=== PATIENT | female | born 1965 | race Caucasian/White ===

== ENCOUNTER 2016-12-26 12:35 | Inpatient (IN) | payer OTHER ==
[~2016-12-26] VITALS: Ht 167.6 cm; Wt 54.6 kg
--- NOTE | ~2016-12-26 | EKG ---
PATIENT: CHA REAVES UNIT #: [id number] Ventricular Rate: 106 BPM Atrial Rate: 106 BPM P-R Interval: 144 ms QRS Duration: 84 ms Q-T Interval: 360 ms QTC Calculation(Bezet): 478 ms P [place]: 60 degrees Calculated R [place]: 35 degrees Calculated T [place]: 44 degrees Diagnosis Line: Sinus tachycardia Diagnosis Line: Otherwise normal ECG Diagnosis Line: Diagnosis Line: Confirmed by ADRIAN PERRY MD ([id number]) on 12/27/2016 Diagnosis Line: 5:56:16 PM INTERPRETING MD: ORLANDO GONZALEZ
--- NOTE | ~2016-12-26 | HP ---
Unit #: [id number] #: [id number] Patient: CHA REAVES [id number] [facility] [address]. [place], [place] [address] [id number] I MR#: [id number] NAME: CHA REAVES ROOM: 90031 Age: 51 Sex: F Admission Date: 12/26/2016 : 1965 Attending Physician: Lizy Sierra M.D. Primary Care Physician: No Primary Care Physician HISTORY AND PHYSICAL CHIEF COMPLAINT Nausea and vomiting. HISTORY OF PRESENT ILLNESS The patient is a 51-year-old female with a past medical history of hypertension, GERD, alcohol abuse, who presented to the emergency department from [facility] for evaluation of the above. The patient states that she has been vomiting since yesterday. She report approximately four bouts of nonbloody emesis within the past 24 hours. She denies any diarrhea. No abdominal pain. No fever. No cough or cold symptoms. She states that she typically drinks a bottle and a half of wine daily. her last drink was yesterday. She had gone to [facility] for rehab. In the emergency department, initial pulse and blood pressure was 106 and 136/80 respectively. Laboratory notable for sodium of 121, lipase is 84. She was given 2 L of normal saline, as well as 4 mg of Zofran in the emergency department. She is being admitting to [facility] for evaluation and further treatment. PAST MEDICAL HISTORY 1. The patient reports that her only hospitalizations have been for childbirth. 2. Hypertension. 3. GERD. PAST SURGICAL HISTORY None. SOCIAL HISTORY The patient lives with her sons. She is a daily drinker. She drinks about a bottle and a half of wine daily, the last drink was yesterday. She was in rehab in October but has recently relapsed. She denies illicit drug use. FAMILY HISTORY Notable for her mother having hypertension. Her dad has atrial fibrillation. ALLERGIES No known allergies. HOME MEDICATIONS Unit #: [id number] #: [id number] Patient: CHA REAVES Progesterone 100 mg at bedtime; Nexium 20 mg daily; Avapro 150 mg at bedtime. REVIEW OF SYSTEMS A complete review of systems is negative except as indicated in the HPI. The patient denies suicidal or homicidal ideations. PHYSICAL EXAMINATION VITAL SIGNS: Temperature is 98.3, pulse 106, respiration 16, blood pressure 136/80, oxygen saturation is 99% on room air. GENERAL: The patient is a female who is awake and alert in no acute distress. HEENT: Head is atraumatic. Mucous membranes are moist. NECK: Supple. Trachea is midline. CARDIOVASCULAR: Regular rate and rhythm. LUNGS: Clear to auscultation bilaterally. There is no increased work of breathing. ABDOMEN: Soft, nontender with bowel sounds present in all four quadrants. EXTREMITIES: Nontender with no pedal edema. NEUROLOGIC: The patient is awake and alert. She follows commands. PSYCH: Mood and affect are normal. The patient is cooperative. SKIN: Warm and dry. DIAGNOSTIC STUDIES LABORATORY STUDIES: Shows comprehensive metabolic panel notable for a sodium of 121, potassium of 3.4, chloride 81, CO2 is 16, anion gap is 24, AST and ALT are 63 and 79 respectively, lipase is 84, complete blood count notable for white blood cell count of 3.4, platelets are 72. ASSESSMENT The patient is a 51-year-old female with: 1. Hyponatremia. The patient's sodium is 121, with no baseline for comparison. Albumin is normal. The patient has had vomiting. I suspect that both alcohol, as well as volume depletion may be contributing. The patient received 2 L of normal saline in the emergency department. 2. Acute pancreatitis. The patient's lipase is 84. She denies abdominal pain. I suspect that this is related to alcohol abuse. 3. Anion gap metabolic acidosis with an anion gap of 24, likely related to alcohol. 4. Hypokalemia with potassium of 3.4. 5. Transaminitis due to alcohol. 6. GERD. 7. Alcohol abuse with last drink yesterday. 8. Hypertension. PLAN 1. Admit to an intermediate level. 2. Regular diet. 3. Bicarb drip at 75 mL an hour. 4. Frequent BMP (q.6 hours). 5. Urine sodium and osmolality. 6. Serum osmolality. 7. Chest x-ray for further evaluation of hyponatremia. 8. Check urinalysis. 9. Strict I's and O's. 10. EKG and cardiac enzymes if not done. 11. Consult Dr. Segura regarding hyponatremia. Unit #: [id number] #: [id number] Patient: CHA REAVES 12. Check magnesium, alcohol salicylate levels. 13. Potassium magnesium protocol. 14. Consult Dr. Romo regarding alcohol abuse. 15. Thiamine, multivitamin, folic acid. 16. CIWA scoring. 17. PT and OT to evaluate and treat. 18. Repeat labs in the morning including magnesium and lipase. 19. SCDs for DVT prophylaxis. 20. Additional workup and consultants based on above. Dictated by Lizy Sierra M.D. IGNACIO/beverley TD: 12/26/2016 17:39 JOB #: [id number] HISTORY AND PHYSICAL Page 1 of 1 X Lizy Sierra MD X HISTORY AND PHYSICAL
--- NOTE | ~2016-12-26 | CO ---
Unit #: [id number] #: [id number] Patient: CHA REAVES [id number] [facility] [address] [facility]. [place], [place] [address] [id number] I MR#: [id number] NAME: CHA REAVES ROOM: 310 Age: 51 Sex: F Admission Date: 12/26/2016 : 1965 Attending Physician: Loulou Hawkins M.D. Primary Care Physician: Primary Care Physician No Consultation Date: 12/27/2016 CONSULTATION REPORT REASON FOR CONSULTATION Depression, alcohol abuse, and withdrawal. HISTORY OF PRESENT ILLNESS Ms. Muro is a 51-year-old white female, seen in room 310, bed 1 on 12/27/2016 at [facility]. The patient dressed casually, lying comfortably in bed. The patient's mom was at the bedside. The patient reported that she started drinking gradually increasing amount after her ran away with the nurse and marrying this winter. The patient reported she got in [facility] of last year. The patient reported that she has two children at home and one is with her ex. The patient reported feeling sad, depressed, and started drinking. The patient reports never received any treatment. The patient was in a treatment with a therapist as well as with the substance abuse program, but never tried on any antidepressant. The patient denied any suicide attempt, but feeling sad, depressed, tearful, anxious, nervous. Denied any current suicidal or homicidal ideation. The patient's vital signs; temperature 98.1, pulse 80, respiratory rate 16, blood pressure 126/88, and oxygen saturation 100%. The patient was transferred from [facility] drug rehab program due to nausea, vomiting, and poor intake. The patient's sodium level was 121 upon admission, lipase 84. PAST PSYCHIATRIC HISTORY Remarkable for history of depression never been treated, history of alcohol abuse. No history of any suicide attempt. PAST MEDICAL HISTORY History of GERD, hypertension. MEDICATION HISTORY home medication progesterone, Nexium, and Avapro. ALLERGIES No known drug allergies. FAMILY HISTORY AND SOCIAL HISTORY The patient has a good support system from family. No history of abuse. History of alcohol abuse, history of recent divorce. REVIEW OF SYSTEMS Complete review of system is unremarkable except as mentioned above. MENTAL STATUS EXAMINATION Vital signs; please see above. General appearance; the patient dressed Unit #: [id number] #: [id number] Patient: CHA REAVES casually, lying comfortably in bed. Attention span and concentration, fair. Speech, regular rate and coherent. Oriented in time, place, and person. Mood and affect; sad, depressed, tearful, withdrawn. Thought process, coherent. Thought content, the patient denied any thoughts of harming self or others. Denied any hallucination. Recent and remote memory, fair. Language, intact. Fund of knowledge, fair. Insight and judgment, fair to slightly impaired. DIAGNOSES Psychiatric: Alcohol use disorder, severe, F10.20; major depressive disorder, recurrent, severe, F33.2. Secondary diagnosis: Deferred. Medical diagnosis: Please refer to H and P. Stressors: Psychosocial stressors. ASSESSMENT/PLAN 1. Supportive psychotherapy and psychoeducation provided to the patient. 2. Educated about benefits and side effects of medication and course and prognosis of illness. 3. Advised to start the patient on Celexa 20 mg daily for depressive symptom. The patient to return to [facility] upon discharge. Please feel free to call if any questions, telephone #[phone]. Dictated by... Rod Mcleod/kostas TD: 12/27/2016 23:28 JOB #: [id number] CONSULTATION REPORT Page 1 of 1 X Oliver Romo MD X CONSULTATION REPORT
--- NOTE | ~2016-12-26 | CR63 ---
[facility] A Service of [facility] RADIOLOGY TEXT RESULTS PATIENT: CHA REAVES LOCATION: [facility] : [birth year] UNIT #: [id number] AGE: [address]: Glo St MD SEX: F ORDER DR: [id number] [facility] [address]. [place], [place] [address] [id number] I MR#: [id number] Acc #: [id number] NAME: CHA REAVES : 1965 SEX: F STUDY DATE/TIME: 12/26/2016 18:32 UNIT: [address] ROOM: 310 STUDY DESCRIPTION: CR Chest 2 View Attending Physician: Lizy Sierra M.D. Ordering Physician: Lizy Sierra M.D. Primary Care Physician: Primary Care Physician No MEDICAL IMAGING REPORT This report is preliminary unless electronic signature is present EXAM PA and lateral chest DATE 12/26/2016 HISTORY Nausea, vomiting, weakness and dehydration since Wednesday. COMPARISON None. FINDINGS PA and lateral examination of the chest upright shows a good expansion of the parenchyma with a normal distribution of the pulmonary vascularity. There is no indication of congestion, effusion, infiltrate, tumor, or nodular density. The pleural reflections and diaphragmatic contours are normal. The cardiac silhouette and mediastinal anatomy is within normal limits. IMPRESSION Normal chest. Dictated by... Julieta Nava M.D. THIS IS AN ELECTRONICALLY VERIFIED REPORT Julieta Nava M.D. at 12/27/2016 2:03 PM JOSE/geri TD: 12/27/2016 01:17 JOB #: [id number] [facility] A Service [facility] RADIOLOGY TEXT RESULTS PATIENT: CHA REAVES LOCATION: [facility] 310 : [birth year] UNIT #: [id number] AGE: [address]: Glo St MD SEX: F ORDER DR: MEDICAL IMAGING REPORT Page 1 of 1 COPY
--- NOTE | ~2016-12-26 | CO ---
Unit #: [id number] #: [id number] Patient: CHA KELLY [id number] [address] [place], [place] [address] [id number] I MR#: [id number] NAME: CHA KELLY ROOM: 310 Age: 51 Sex: F Admission Date: 12/26/2016 : 1965 Attending Physician: Loulou Hawkins M.D. Primary Care Physician: Primary Care Physician No Consultation Date: 12/26/2016 CONSULTATION REPORT REASON FOR CONSULTATION Hyponatremia. HISTORY OF PRESENT ILLNESS Ms. Kelly is a 51-year-old female with a history of alcohol abuse, drinking a full bottle to a bottle and a half of Chardonnay daily, who presented to the emergency room with nausea and vomiting after reporting to [facility] yesterday for alcohol rehabilitation. The emesis was nonbloody in nature. She did not have any abdominal pain per se or any diarrhea with the emesis. She was able to eat some dinner here tonight in the emergency room. We were asked to see because of a low sodium level. The patient has been getting IV fluids and she is already starting to correct here in the emergency room. She is feeling little bit better, but does have some mild tremors. She denies any chest discomfort or shortness of breath. No urinary complaints. No swelling. PAST MEDICAL HISTORY Significant for hypertension, GERD, and alcohol abuse. PAST SURGICAL HISTORY None. HOME MEDICATIONS She says she takes irbesartan for blood pressure, she thinks it is 300 mg a day, stomach acid pat, and progesterone pill. ALLERGIES She has no known drug allergies. FAMILY HISTORY Significant for hypertension and atrial fibrillation. She denies any alcoholism in the family. SOCIAL HISTORY The patient lives with family. No illicit drug or tobacco use. REVIEW OF SYSTEMS A complete 12-point review of systems was completed with the above findings. In addition, she denies any fevers or chills. No headache currently. No nosebleed, sore throat, or earache. No cough or hemoptysis. No bright red blood per rectum or melena. No dysuria. No hematuria. No swelling. No rashes. No itching. No flank pain. No night sweats or hot flashes. No intolerance to heat or cold. She thinks she has lost weight. Unless otherwise indicated, the review of systems Unit #: [id number] #: [id number] Patient: CHA KELLY was negative. PHYSICAL EXAMINATION VITAL SIGNS: The patient is afebrile. Pulse 108, respiratory rate 16, and blood pressure 159/95. GENERAL: This is a 51-year-old female, who is appropriate, answers questions, little bit anxious but in no acute distress. HEENT: Head is atraumatic and normocephalic. Eyes show pink conjunctivae. No nasal drainage or nosebleed. Oropharynx is slightly dry. NECK: Shows no rigidity, no JVD. HEART: Tachycardic and regular with no murmur or rub appreciated. LUNGS: Clear with no wheezing or rhonchi. Breathing is nonlabored. ABDOMEN: Soft. No masses appreciated. There are bowel sounds present. EXTREMITIES: No lower extremity clubbing, cyanosis, or edema. SKIN: Dry with no rashes. MUSCULOSKELETAL: No CVA tenderness to palpation. No joint effusions noted. NEUROLOGICAL: Cranial nerves are grossly intact with no gross motor deficits. LYMPHATIC: No neck or cervical lymphadenopathy. PSYCHIATRIC: Mood and affect appear normal. She does appear anxious. DIAGNOSTIC STUDIES LABORATORY RESULTS: Admission sodium level 121, potassium 3.4, chloride 81, bicarb of 16, glucose 82, BUN 12, creatinine was 0.9. AST and ALT high at 63 and 78 respectively. Total bilirubin was normal at 1.2. Lipase high at 84. CBC noteworthy for a low white count of 3.4, low platelet count of 72. Troponin negative. Repeat sodium level had come up to 127 with correction in the potassium of 3.9. Acidosis has also improved with bicarb of 22, creatinine still 0.9. CK level normal. Alcohol level was less than 5 at this point. Serum osmolality was low at 269. Therefore, overall her sodium level has corrected from 121 to 127. ASSESSMENT AND PLAN 1. Hyponatremia. This is likely a combination of hypovolemic hyponatremia from her nausea and vomiting as well as hyponatremia induced from poor general nutrition and alcoholism. She is corrected by six points and we will attempt to slow this down with some D5W tonight. We will check a chemistry every 6 hours and I will have them called if sodium level falls out of our correction parameters. 2. Alcoholism. The patient will need rehab and seems like she is motivated to quit. 3. Hypokalemia. This is likely related to her nausea and vomiting and has improved at this time. She does need a magnesium level checked and this has been ordered. 4. Anion gap metabolic acidosis. This is likely related to her alcohol use. She denies any other ingestions. It is already starting to correct with rehydration, which will be continued. 5. Elevated liver function test from alcoholism. 6. History of hypertension. Her irbesartan has been held at this time and we can monitor her blood pressure while in-house. I would like to thank Dr. Sierra for this consultation and the opportunity to participate in evaluation and care of . Cha Kelly. Dictated by... Zain Segura Jr., M.D. Unit #: [id number] #: [id number] Patient: CHA KELLY PROMISEK/cindyl TD: 12/27/2016 15:18 JOB #: [id number] CONSULTATION REPORT Page 1 of 1 X Zain Segura MD X CONSULTATION REPORT
--- NOTE | ~2016-12-26 | DS ---
Unit #: [id number] #: [id number] Patient: CHA KELLY [id number] [address] [address] [id number] I MR#: [id number] NAME: CHA KELLY ROOM: 310 Age: 51 Sex: F Admission Date: 12/26/2016 : 1965 Discharge Date: 12/28/2016 Attending Physician: Loulou Hawkins M.D. DISCHARGE SUMMARY PRINCIPAL DIAGNOSES 1. Hyponatremia secondary to chronic alcohol abuse. 2. Metabolic acidosis, now resolved. 3. Hypertension, uncontrolled. 4. Hypokalemia, resolved. 5. Transaminitis, asymptomatic. 6. Hypomagnesemia. 7. Elevated lipase without clinical evidence of pancreatitis. 8. Alcohol-induced thrombocytopenia. INDEPENDENT INSURANCE ADJUSTER Dr. Segura, Nephrology. PROCEDURE Chest x-ray on December 26, 2016, which was normal. CLINICAL HISTORY AND HOSPITAL COURSE Ms. Kelly is a nice 51-year-old female recently admitted to [facility] due to chronic alcohol abuse. She developed nausea and vomiting and was found to have a sodium of 121. She was subsequently admitted. Patient was placed on low-dose IV fluids, and Nephrology was consulted. Over the course of the next several days, sodium has corrected and is now up to 128. Will continue to avoid medications which induce hyponatremia. I will note, patient's blood pressure has been elevated, and I am still in the process of adjusting medications. Her elevation is primarily diastolic which is chronic. Will add some Norvasc, and if blood pressure in a few hours is acceptable, she can be discharged back to [facility]. Patient was seen in consultation by Dr. Romo and was placed on Celexa. But given her hyponatremia, I am hesitant to continue Celexa. Patient states it also makes her feel dizzy, and thus I am going to hold Celexa at this time. DISCHARGE CONDITION Stable. DISCHARGE STATUS Discharge back to [facility]. DISCHARGE MEDICATIONS 1. Metoprolol tartrate 25 mg b.i.d. Unit #: [id number] #: [id number] Patient: CHA EKLLY 2. Avapro 300 mg at bedtime. 3. Prometrium 100 mg at bedtime. 4. Nexium 20 mg daily. 5. Norvasc 10 mg daily. DISCHARGE INSTRUCTIONS 1. Patient is instructed to follow a heart-healthy diet. 2. She can increase her activity as tolerated. 3. Avoid any further alcohol use. FOLLOWUP Patient will follow up with her PCP upon discharge from [facility]. She should have a followup BMP done in one week. Dictated by... Loulou Hawkins M.D. Su TD: 12/28/2016 15:07 JOB #: [id number] DISCHARGE SUMMARY Page 1 of 1 X Loulou Hawkins MD X DISCHARGE SUMMARY
--- NOTE | ~2016-12-26 | CO ---
Unit #: [id number] #: [id number] Patient: CHA REAVES [id number] [address] [address] [id number] I MR#: [id number] NAME: CHA REAVES ROOM: 310 Age: 51 Sex: F Admission Date: 12/26/2016 : 1965 Attending Physician: Loulou Hawkins M.D. Primary Care Physician: Primary Care Physician No Consultation Date: 12/28/2016 CONSULTATION REPORT REASON FOR CONSULTATION Followup. DISCUSSION Ms. Muro is a 51-year-old female, seen in room 310 bed 1 on 12/28/2016. The patient reports feeling better, was reported trouble sleeping last night. Started on Celexa. The patient reports that she was on Remeron earlier. The patient denied any suicidal or homicidal ideation. Affect was brighter. Feeling better. Her hydration was better. The patient was admitted with dehydration. Vital signs; pulse 78, blood pressure 134/88. REVIEW OF SYSTEMS Complete review of systems unremarkable. MENTAL STATUS EXAMINATION General appearance, the patient dressed casually. Attention span and concentration, fair. Speech was regular rate and coherent. Oriented in time, place, and person. Mood and affect were brighter. Thought process, coherent. Thought content, the patient denied any thoughts of harming self or others or any hallucination. Recent and remote memory, fair. Language, intact. Fund of knowledge, fair. Insight and judgment, fair to slightly impaired. DIAGNOSES Psychiatric: Alcohol use disorder, severe, F10.20; major depressive disorder, recurrent, severe, F33.2. ASSESSMENT AND PLAN 1. Supportive psychotherapy and psychoeducation provided to the patient. 2. Educated about benefits and side effects of medication and course and prognosis of illness. 3. Advised to continue with current combination of medication and plan to follow up at [facility] after the patient discharge from here. Please feel free to call if any questions telephone #[phone]. Dictated by... Oliver Romo M.D. TEDDY/kostas TD: 12/29/2016 15:40 JOB #: [id number] Unit #: [id number] #: [id number] Patient: CHA REAVES CONSULTATION REPORT Page 1 of 1 X Oliver Romo MD CONSULTATION REPORT
[2016-12-26 13:44] LABS: BASOPHIL% 0.2 % (0-2.5); EOSINOPHIL% 0.1 % (0.0-7.0); HEMATOCRIT 40.9 % (35.0-45.0); HEMOGLOBIN 14.5 gm/dL (12.0-16.0); LYMPHOCYTE# 0.5 X10e3 (1.0-3.5); LYMPHOCYTE% 14.6 % (17.0-45.0); MEAN CELL VOLUME 91.3 FL (83-96); MEAN CORPUSCULAR HEMOGLOBIN 32.3 PG (28-34); MEAN CORPUSCULAR HGB CONC 35.4 g/dL (30-36); MEAN PLATELET VOLUME 7.8 FL (6.5-11.5); MONOCYTE# 0.1 X10e3 (0-1.0); MONOCYTE% 4.1 % (3.0-12.0); NEUTROPHIL# 2.7 X10e3 (1.5-7.1); PLATELET COUNT 72 X10e3 (140-420); RED BLOOD COUNT 4.48 X10e (3.90-5.30); RED CELL DISTRIBUTION WIDTH 12.2 % (11.0-15.5); WHITE BLOOD COUNT 3.4 X10e3 (4.0-10.5)
[2016-12-26 13:45] LABS: DIFF IND YES
[2016-12-26 13:47] LABS: ALBUMIN SERUM 4.5 g/dL (3.5-5.0); BILIRUBIN, DIRECT 0.2 mg/dL (0.0-0.2); BILIRUBIN,TOTAL 1.2 mg/dL (0.2-2.0); BUN/CREATININE RATIO 13.33; CALCIUM SERUM 9.1 mg/dL (8.4-10.2); CREATININE SERUM 0.9 mg/dL (0.6-1.4); GLOM FILT RATE Estimated 75.1 mL/min (>60); POTASSIUM 3.4 mmol/L (3.5-5.1); PROTEIN TOTAL SERUM 7.5 g/dL (6.0-8.3)
[2016-12-26 13:49] LABS: PLATELET ESTIMATE DECREASED (NORMAL); RBC NORMAL YES
[2016-12-26] MEDS ORDERED: PROGESTERONE100 MG PO (14:43)
[2016-12-26] MEDS ORDERED: NEXIUM20 MG PO (14:44)
[2016-12-26] MEDS ORDERED: AVAPRO PO (14:48)
[2016-12-26 19:05] LABS: OSMOLALITY,SERUM 269 mOsmo/kg (280-300)
[2016-12-26 19:07] LABS: BLOOD UREA NITROGEN 9 mg/dL (9-23); CALCIUM SERUM 8.5 mg/dL (8.4-10.2); CARBON DIOXIDE 22 mmol/L (22-31); CHLORIDE 92 mmol/L (100-111); CK TOTAL 47 IU/L (26-140); CREATININE SERUM 0.9 mg/dL (0.6-1.4); GLOM FILT RATE Estimated 75.1 mL/min (>60); GLUCOSE FASTING 144 mg/dL (70-110); POTASSIUM 3.9 mmol/L (3.5-5.1); SALICYLATE <4.0 mg/dL; SODIUM 127 mmol/L (135-145)
[2016-12-26 19:14] LABS: ALCOHOL BLOOD <5 mg/dL ([, 0])
[2016-12-26 20:18] LABS: URINE SOURCE CLEAN CATCH
[2016-12-26 20:23] LABS: URINE APPEARANCE CLEAR; URINE BILIRUBIN NEG (NEG); URINE BLOOD NEG (NEG); URINE COLOR YELLOW; URINE GLUCOSE NEG (NEG); URINE KETONE 2+ (NEG); URINE LEUKOCYTE ESTERASE NEG (NEG); URINE NITRATE NEG (NEG); URINE PH 6.5 (5-8); URINE PROTEIN NEG (NEG); URINE SPECIFIC GRAVITY 1.008 (1.003-1.035); URINE UROBILINOGEN 0.2 MG/DL (NEG)
[2016-12-26 22:25] LABS: BUN/CREATININE RATIO 11.25; CALCIUM SERUM 8.7 mg/dL (8.4-10.2); CREATININE SERUM 0.8 mg/dL (0.6-1.4); GLOM FILT RATE Estimated 86.6 mL/min (>60); MAGNESIUM 1.7 mg/dL (1.6-3.0); POTASSIUM 3.6 mmol/L (3.5-5.1)
[2016-12-26 23:32] LABS: CK TOTAL 44 IU/L (26-140)
[2016-12-27 03:17] LABS: BASOPHIL% 0.2 % (0-2.5); EOSINOPHIL% 0.3 % (0.0-7.0); HEMATOCRIT 39.2 % (35.0-45.0); HEMOGLOBIN 13.8 gm/dL (12.0-16.0); LYMPHOCYTE# 1.2 X10e3 (1.0-3.5); LYMPHOCYTE% 29.8 % (17.0-45.0); MEAN CELL VOLUME 92.7 FL (83-96); MEAN CORPUSCULAR HEMOGLOBIN 32.6 PG (28-34); MEAN CORPUSCULAR HGB CONC 35.1 g/dL (30-36); MEAN PLATELET VOLUME 7.9 FL (6.5-11.5); MONOCYTE# 0.2 X10e3 (0-1.0); MONOCYTE% 6.2 % (3.0-12.0); NEUTROPHIL# 2.5 X10e3 (1.5-7.1); NEUTROPHIL% 63.5 % (40-75); PLATELET COUNT 72 X10e3 (140-420); RED BLOOD COUNT 4.23 X10e (3.90-5.30); RED CELL DISTRIBUTION WIDTH 12.3 % (11.0-15.5); WHITE BLOOD COUNT 3.9 X10e3 (4.0-10.5)
[2016-12-27 03:18] LABS: DIFF IND NO
[2016-12-27 03:37] LABS: CK TOTAL 43 IU/L (26-140)
[2016-12-27 03:41] LABS: ALBUMIN SERUM 3.9 g/dL (3.5-5.0); BILIRUBIN,TOTAL 0.7 mg/dL (0.2-2.0); BUN/CREATININE RATIO 11.25; CREATININE SERUM 0.8 mg/dL (0.6-1.4); GLOM FILT RATE Estimated 86.6 mL/min (>60); POTASSIUM 3.4 mmol/L (3.5-5.1)
[2016-12-27 10:51] LABS: CALCIUM SERUM 8.8 mg/dL (8.4-10.2); GLOM FILT RATE Estimated 66.1 mL/min (>60)
[2016-12-27 21:27] LABS: BUN/CREATININE RATIO 7.5; CALCIUM SERUM 8.6 mg/dL (8.4-10.2); CREATININE SERUM 0.8 mg/dL (0.6-1.4); GLOM FILT RATE Estimated 86.6 mL/min (>60)
[2016-12-28 07:16] LABS: ALBUMIN SERUM 3.5 g/dL (3.5-5.0); BILIRUBIN,TOTAL 0.4 mg/dL (0.2-2.0); BUN/CREATININE RATIO 8.33; CALCIUM SERUM 8.7 mg/dL (8.4-10.2); CREATININE SERUM 0.6 mg/dL (0.6-1.4); MAGNESIUM 1.3 mg/dL (1.6-3.0); POTASSIUM 3.4 mmol/L (3.5-5.1); PROTEIN TOTAL SERUM 5.8 g/dL (6.0-8.3)
[2016-12-28] MEDS ORDERED: LOPRESSOR PO (15:05)
[2016-12-28] MEDS ORDERED: NORVASC10 MG PO (15:06)
== END 2016-12-28 17:48 | DRG 439 ==
LOC: CED 12:35 → C3A PCU 16:10 → CEDOF 16:10 → C3A PCU 17:37 → CEDOF 17:37 → C3A PCU 17:37 → CED 17:37 → C3A PCU 12-27 06:36
PROVIDERS: Emergency Medicine; Family Medicine; Internal Medicine; Internal Medicine Nephrology
DX: K85.20 Alcohol induced acute pancreatitis without necrosis or infection (principal); E87.1 Hypo-osmolality and hyponatremia; E87.2 Acidosis; D69.59 Other secondary thrombocytopenia; F33.2 Major depressive disorder, recurrent severe without psychotic features; E83.42 Hypomagnesemia; I10 Essential (primary) hypertension; K21.9 Gastro-esophageal reflux disease without esophagitis; E87.6 Hypokalemia; R74.0 Nonspecific elevation of levels of transaminase and lactic acid dehydrogenase [LDH]; F10.20 Alcohol dependence, uncomplicated; R94.5 Abnormal results of liver function studies
CPT/HCPCS: 36415; 71020; 80048; 80053; 80076; 81003; 82550; 83690; 83735; 83930; 83935; 84132; 84300; 84443; 84484; 85025; 87086; 93005; 96361; 96374; 97161; 99285; G0480; G8978-GP; G8979-GP; G8980-GP; J2405; J3475; J7060